=== PATIENT | female | born 1965 | race Two or more races ===

== ENCOUNTER 2024-06-01 11:55 | Emergency (ER) | payer OTHER ==
[~2024-06-01] VITALS: Ht 167.6 cm; Wt 73.5 kg
[2024-06-01] MEDS ORDERED: SYNTHROID50 MCG PO (12:45)
[2024-06-01] MEDS ORDERED: KETOROLAC TROMETHAMINE 60 MG VIAL IM ONE ×2 (15:28→15:30)
[2024-06-01] MEDS ORDERED: DEXAMETHASONE SODIUM PHOSPHATE 4 MG/ML VIAL ONE (15:28)
[2024-06-01] MEDS ORDERED: DEXAMETHASONE SODIUM PHOSPHATE 4 MG/ML VIAL IM ONE (15:30)
[2024-06-01] MEDS ORDERED: IBU600 MG PO (19:12)
== END 2024-06-01 19:58 | disposition home or self-care (01) ==
LOC: ER 11:57
DX: M25.571 Pain in right ankle and joints of right foot (principal); E03.8 Other specified hypothyroidism